=== PATIENT | female | born 2005 | race Caucasian/White ===

== ENCOUNTER 2025-01-28 23:40 | Emergency (ER) | payer BC, SELFPAY ==
--- OUTSIDE RECORDS SUMMARY | 2013-09-21 09:51 | XMS_ITS | Continuity of Care Document ---
Author Organization [facility] Address [address] [address] [place] [address] Phone Care Team Providers Care College Or University Business Manager Name Role Phone Jil DUMONT, Rachel Unavailable Unavailable Medications Medication Instructions Dosage Effective Dates (start - stop) Status Comments Children's Tylenol 160 mg/5 mL oral suspension take 5 ml (160MG) by oral route every 6 hours as needed 160 MG - Active Tums 300 mg (750 mg) chewable tablet take 2 - 3 Tablet by Oral route every day as needed 2-3 Tablet - Active Procedures Procedure Date Ugi Endo; W/bx 1/mx Colonoscopy Flex; W/bx 1/mx Offic Cons New/estab Mod Routine Serum Collection Bld Ct; Hg/pltlt Ct Auto/compl 14 Sed Rate, Erythrocyte; Auto Hepatic Function Panel C-reactive Prot Thyroid Stim Hormone Advance Directives Directive Yes / No Effective Date File Name No Information Encounters Encounter Description Practice Location Reason(s) For Visit Diagnoses Date Provider Providers Copied on Encounter [facility], [address] [address], [place], [place], [id number], [place] tel:[phone] Pediatric Clinic No Information Jil Ramos. [address] [facility], [place], [place], [id number] , [place]. tel:[phone] [facility], [address] [address], [place], [place], [id number], [place] tel:[phone] [facility] Procedures No Information Roula PATRICK Ulises. [address] [facility], [facility] [address], [place], [place], [id number] , [place]. tel:[phone] Referring Provider: Zoran Nelson MD, [address] [facility], [place], [address]. tel:[phone] Offic Cons New/estab Mod [facility], [address] [address], [place], [place], [address], [place] tel:[phone] [facility] Pain Jil Ramos. [address] [facility], [facility] [address], [place], [place], [id number] , [place]. tel:[phone] Referring Provider: Zoran Nelson MD, [address] [place], [address]. tel:[phone] Family History Family Member Type Diagnosis Age At Onset First degree family history Problem (finding) No Family history of No history of Colon Polyps First degree family history Problem (finding) No history of Ulcerative Colitis Maternal aunt Problem (finding) Liver Gallbladder Dise ase First degree family history Problem (finding) No histo ry of Crohn's Maternal grandmother Problem (finding) Thyroid disorde r First degree family history Problem (finding) No history of Colon Rectal Cancer Payers Payer name Insurance type Covered alliance party ID Authoriza tion(s) No Information Social History Type Description Quantity Date Captured Comments Sex Female Smoking Status No Information Chief Complaint And Reason For Visit No Information Reason For Referral Reason For Referral No Information History Of Present Illness Encounter Date Complaint History Of Prese nt Illness No Information Functional Status Date Functional Assessmen t No Information Instructions Date Instruction Additional Infor mation No Information Assessments Type Assessment Date No Information Patient Care Teams Name Effective Dates (start - stop) Status Members No Information
--- OUTSIDE RECORDS SUMMARY | 2013-09-21 09:51 | XMS_ITS | Continuity of Care Document ---
Author Organization [facility] Address [address] [address] [place] [address] Phone Care Team Providers Care Research Epidemiologist Name Role Phone Jil DUMONT, Rachel Unavailable [...] Encounter [facility], [address] [address], [place], [place], [address], [place] tel:[phone] Pediatric Clinic No Information Jil Ramos. [address] [facility], [address], [place], [place], [address] , [place]. tel:[phone] [facility], [address] [address], [place], [place], [address], [place] tel:[phone] [facility] Procedures No Information Roula PATRICK Ulises. [address] [facility], [facility] [address], [place], [place], [address] , [place]. tel:[phone] Referring Provider: Zoran Nelson MD, [address] [facility], [place], [address]. tel:[phone] Offic Cons New/estab Mod [facility], [address] [address], [place], [place], [address], [place] tel:[phone] [facility] Pain Jil Ramos. [address] [facility], [facility] [address], [place], [place], [id number] , [place]. tel:[phone] Referring Provider: Zoran Nelson MD, [address] [place], [address]. tel:[phone] Family History Family Member Type Diagnosis Age [...] Cancer Payers Payer name Insurance type Covered democrat ID Authoriza tion(s) No Information Social History [...]
[2025-01-28 23:42] VITALS: BP 127/84; PULSE 81; RESP 16; TEMP 36.3; O2SAT 99; BMI 21.1
--- OUTSIDE RECORDS SUMMARY | 2025-01-28 23:43 | XMS_ITS | Patient Health Record ---
Author Organization [facility] Address [address] [place] [address] Care Team Providers Care Skein Yarn Drier Name Role Phone CHEKO [place] Primary Care Provider Kelly LILI Josue Unavailable [phone] None, None Unavailable Unavailable Allergies Allergen (clinical drug ingredient) Drug/Non Drug Allergy documented on EMR Reaction Allergy Type Onset Date Status oseltamivir Tamiflu Unknown Drug Allergy Activ e Reason For Referral No Information Medications Medication SIG (Take, Route, Frequency, Duration) Notes Start Date End Date Status Sertraline HCl Activ e Augmentin 500-125 MG Tablet 1 tablet Orally every 12 hrs Active busPIRone HCl Active Adderall Active traZODone HCl Active Social History Tobacco Use: Social History Observation Description Date Details (start date - stop date) Never Smoker NA - NA Social History Tobacco Use: Social Info Question Answer Notes Tobacco Control (Standard) Tobacco use: Nonsmoker Vital Signs Height-cm 160.02 cm 03/23/2024 Weight-kg 52.62 kg 03/23/2024 BMI Percentile 39.45 % 03/23/2024 Height 63 in 03/23/2024 Weight 116 lbs 03/23/2024 BMI 20.55 kg/m2 03/23/2024 Procedures Procedure Date Ordered Date Performed Result Body Sit e Surgery 03/22/2024 03/22/202424 I&D PERITONSILLAR ABSCESS 03/23/2024 03/23/2024 N/A Encounters Encounter Location Date Provider Diagnosis [facility] [address] [place] [phone] 03/15/2024 LILI PATRICIA Peritonsillar absces s J36 [facility] [place] [address] [address] 03/23/2024 LILI PATRICIA Tonsillitis J03.90 [facility] [address] [facility] [address] [place], [place] [phone] 07/01/2024 LILI PATRICIA [facility] [place] [address] [place] [phone] 03/22/2024 LILI PATRICIA [facility] [place] [address] [place] [phone] 03/29/2024 LILI PATRICIA [facility] [address] [address] 04/18/2024 LILI PATRICIA [facility] [address] [address] 04/26/2024 LILI PATRICIA Assessments Encounter Date Diagnosis (ICD Code) Assessment Notes Treatment Notes Treatment Clinical Notes Section Notes 03/15/2024 Peritonsillar abscess (ICD-10 - J36) We reviewed the patient's clinical exam and management options moving forward. On exam, she has residual tonsil tissue and inflammation on the left with drops of pus from the left superior pole. The patient has a left peritonsillar abscess, although fortunately it is draining. I advised her to gargle with saltwater twice per day, manually press on the tonsils, and continue with her antibiotics. If the abscess seems to be bulging, she should return to clinic to have it manually drained in office. If this is a recurrent problem she may require revision tonsillectomy. 03/23/2024 Tonsillitis (ICD-10 - J03.90) I reviewed her clinical findings with her and her mother which demonstrated right-sided tonsil/ peritonsillar infection. This looked suspicious for a potential peritonsillar abscess, so I discussed needle aspiration with possible I&D. I reviewed the risks, alternatives, benefits with her and her mother and they wished to proceed. This was done without difficulty but I didn't encounter significant purulence.I suspect this either represents tonsillitis or a peritonsillar phlegmon, and because this is developed while on Augmentin I recommended switching to clindamycin. A short course of narcotics and 2 days of prednisone were prescribed and she will have Diflucan available if necessary. We discussed the risk of diarrhea on clindamycin and I encouraged probiotic use. If the right tonsillar infection progresses over the next 1 to 2 days I have asked him to either contact me or to go to the emergency department. She may benefit from CT imaging to better localize a potential abscess pocket. She is currently scheduled for a tonsillectomy in June. Plan Of Treatment No Information Insurance Providers Payer Name Payer Address Payer Phone Subscriber Number Group Number Insured Name Patient Relationship to Insured Coverage Start Date Coverage End Date [facility] [address] [address] [place] [address] [id number] Angel Alanis Self - patient is the insured 2023 Medical (General) History Medical History History ICD Code depression anxiety hashimostos Surgical History Surgery Date(Month/Year) ankle x5 tonsils MM 07/01/2024 Hospitalization History Reason Date(Month/Year) Same as Surgical history
--- OUTSIDE RECORDS SUMMARY | 2025-01-28 23:43 | XMS_ITS | Encounter Summary ---
Author Organization [place] Address [facility] [place] [address] Care Team Providers Care Director Of Operations Support Name Role Phone Subha Levine PA-C Primary Care Provider [phone] Subha Levine PA-C Unavailable [phone] [facility] Primary Care Pr ovider Gabriella Duffy MD Unavailable [phone] [facility] Unavail able Encounter Details Date Type Department Care Team (Late st Contact Info) Description 05/22/2022 MyC Medical Advice [facility] [id number] [place] [phone] Subha Levine PA-C [address] [facility] [address] [place], [place] [id number] Social History Tobacco Use Types Packs/Day Years Used Date Smoking Tobacco: Never Smokeless Tobacco: Never Alcohol Use Standard Drinks/Week Comments Never 0 (1 standard drink = 0.6 oz pur e alcohol) AUDIT-C Answer Date Recorded Q1: How often do you have a drink containing alc ohol? Never 11/15/2019 Average Number of Drinks Not on file 020 Frequency of Binge Drinking Not on file 11/2019 PHQ-2 Answer Date Recorded PHQ-2 Score 2 05/22/2022 Comments No Sex and Gender Information Value Date Recorded Sex Assigned at Not on file Legal Sex Female 8:56 AM TESTER PRINTED CIRCUIT BOARDS Gender Identity Not on file Sexual Orientation Not on file COVID-19 Exposure Response Date Recorded In the last 10 days, have yo u been in contact with someone who was confirmed or suspected to have Coronavirus/COVID-19? No / Unsure 05/22/2022 9:15 AM TESTER PRINTED CIRCUIT BOARDS documented as of this encounter Plan of Treatment Not on file documented as of this encounter Visit Diagnoses Not on filedocumented in this encounter Additional Health Concerns Infection Onset Date Last Indicated Resolved Time Rule Out COVID-19 06/03/2022 06/03/2022 06/03/2022 9:15 PM TESTER PRINTED CIRCUIT BOARDS Influenza 06/03/2022 06/03/2022 06/10/2022 11:4 1 PM TESTER PRINTED CIRCUIT BOARDS Assessment Noted Time PHQ-9 Depression Total Score: 16 022 9:21 AM TESTER PRINTED CIRCUIT BOARDS documented as of this encounter Care Teams Director Of Operations Support Relationship Specialty Start Date End Date Subha Levine PA-C PCP - General Physician Aircraft Time Clerk 01/31/20 08/15/[address] [address] PCP - General 08/16/23 Subha Levine PA-C Assigned PCP 04/07/21 06/03/24 [place] [address] [place] [address] Assigned PCP 06/04/24 10/01/24 [facility] [address] [place] [address] Assigned PCP 10/02/24 documented as of this encounter
--- OUTSIDE RECORDS SUMMARY | 2025-01-28 23:43 | XMS_ITS | Clinical Summary ---
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 Active busPIRone (BUSPAR) 15 MG tablet Take 15 mg by mouth 2 times daily. Active acetaminophen (TYLENOL) 500 MG tabletIndications :Peritonsillar abscess Take 2 tablets (1,000 mg) by mouth every 8 hours. 30 tablet 03/26/20 24 Active ibuprofen (ADVIL/MOTRIN) 400 MG tabletIndications :Peritonsillar abscess Take 1 tablet (400 mg) by mouth every 8 hours as needed for inflammatory pain. Can upset stomach so should be taken with food 30 tablet 03/26/20 24 Active guaiFENesin-codei ne (ROBITUSSIN AC) 100-10 MG/5ML solutionIndicatio ns:Acute cough Take 5-10 mLs by mouth every 6 hours as needed for cough. 180 mL 04/09/20 24 Active amoxicillin-clavu lanate (AUGMENTIN) 875-125 MG tablet Take 1 tablet by mouth 2 times daily. 20 tablet 04/15/20 24 Active magic mouthwash suspension (diphenhydrAMINE, lidocaine, aluminum-magnesiu m & simethicone) Swish and swallow 10 mLs in mouth every 6 hours as needed for sore throat. 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 09/25/2021 Attention deficit disorder (ADD) without hyperac tivity 07/17/2021 Dysmenorrhea 07/17/2021 Posterior tibial tendinitis, left 07/22/2017 Resolved Problems Problem Noted Date Diagnosed Date Resolved Date Chronic pain of left ankle 03/13/2021 0 10/14/2021 Aftercare following surgery of the musculoskeletal system 03/13/2021 10/14/2021 Immunizations Immunization Administration Dates Next Due COVID-19 MONOVALENT 12+ (Pfizer) 04/06/2021,090 10/2020 DTAP (<7y) 02/21/2011, 7,05/19/2006,03/23,01/19/2006 Flu, Unspecified 06/28/2008,05/27/2006 [id number] Novel Flu 06/09/2009,05/15/2009 HIB, Unspecified 2006, 6,03/23/2006,01/19 HPV9 (Gardasil) 06/18/2019,02/25/2018 HepA-Peds, Unspecified 02/21/2011 HepB, Unspecified 05/27/2006,03/23/2006,01/20/20 06 Hepatitis A (Vaqta/Havrix)(P eds 12m-18y) 12/25/2008 Influenza (IIV3) PF 04/06/2021, 6,04/27/2015,04/27,07/20/2013,07/04/2010,04/19/2007 Influenza (prior to 2023) 06/24/2017,04/29/2012, 09/23/2011 Influenza Vaccine >6 months,quad, PF 06/01/2020, 06/18/2019 MMR (MMRII) 02/21/2011,2006 Meningococcal ACWY (Menactra ) 11/15/2021,02/25/2018 Pneumococcal (PCV 7) 2006,05/19/20 06,03/23/2006,01/19 Poliovirus, inactivated (IPV) 03/13/2011 ,05/19/2006,03/23/2006,01/19 TDAP Vaccine (Adacel) 02/25/2018 Varicella (Varivax) 02/21/2011,2006 Family History Medical History Relation Comments Coronary Artery Disease Maternal Grandfather Diabetes Maternal Grandfather Hyperlipidemia Maternal Grandfather Coronary Artery Disease Maternal Grandmother Depression Mother Relation Status Comments Brother Alive Father Alive Maternal Grandfather Alive Maternal Grandmother Alive Mother Alive Paternal Grandfather Alive Paternal Grandmother Alive Social History Tobacco Use Types Packs/Day Years Used Date Smoking Tobacco: Never Smokeless Tobacco: Never Tobacco Cessation:Counseling Given: Not Answered Alcohol Use Standard Drinks/Week Comments Never 0 (1 standard drink = 0.6 oz pur e alcohol) AUDIT-C Answer Date Recorded Q1: How often do you have a drink containing alc ohol? Never 11/15/2019 Average Number of Drinks Not on file 020 Frequency of Binge Drinking Not on file 11/2019 PHQ-2 Answer Date Recorded PHQ-2 Score 2 05/22/2022 Adolescent Education Answer Date Record ed Getting School Help Needed Not on file 04/03 Food Insecurity Answer Date Recorded Within the past 12 months, d id you worry that your food would run out before you got money to buy more? No 03/24/2024 Within the past 12 months, d id the food you bought just not last and you didn t have money to get more? No 03/24/2024 Housing Stability Answer Date Recorded Do you have housing? (Jose bonds is defined as stable permanent housing and does not include staying outside in a car, in a tent, in an abandoned building, in an overnight mcfp, or couch-surfing.) Yes 03/24/2024 Are you worried about losing your housing? No 03/24/2024 Financial Resource Strain Answer Date R ecorded Within the past 12 months, h ave you or your family members you live with been unable to get utilities (heat, electricity) when it was really needed? No 03/24/2024 Transportation Needs Answer Date Record ed Within the past 12 months, h as lack of transportation kept you from medical appointments, getting your medicines, non-medical meetings or appointments, work, or from getting things that you need? No 03/24/2024 Interpersonal Safety Answer Date Record ed Do you feel physically and e motionally safe where you currently live? Yes 03/24/2024 Within the past 12 months, h ave you been hit, slapped, kicked or otherwise physically hurt by someone? No 03/24/2024 Within the past 12 months, h ave you been humiliated or emotionally abused in other ways by your partner or ex-partner? No 03/24/2024 Comments No Sex and Gender Information Value Date Recorded Sex Assigned at Not on file Legal Sex Female 8:56 AM MOBILE CRANE OPERATOR Gender Identity Not on file Sexual Orientation Not on file Last Filed Vital Signs Vital Sign Reading Time Taken Comments Blood Pressure 107/65 07/03/2024 5:45 AM MOBILE CRANE OPERATOR Pulse 74 07/03/2024 5:45 AM MOBILE CRANE OPERATOR Temperature 37.1 C (98.8 F) 07/03/2024 3:16 AM MOBILE CRANE OPERATOR Respiratory Rate 18 07/03/2024 3:16 AM MOBILE CRANE OPERATOR Oxygen Saturation 100% 07/03/2024 5:45 AM MOBILE CRANE OPERATOR Inhaled Oxygen Concentration - - Weight 55.7 kg (122 lb 12.7 oz) 07/03/2024 3:16 AM MOBILE CRANE OPERATOR Height 160 cm (5' 3) 03/24/2024 3:50 AM CDT Body Mass Index 21.75 03/24/2024 3:50 AM CDT Body Mass Index Percentile 53.78% 07/03/2024 3:1 6 AM MOBILE CRANE OPERATOR Growth Chart: CDC (Girls, 2- 20 Years) Plan of Treatment Health Maintenance Due Date Last Done Comments DEPRESSION ACTION PLAN 2005 HIV SCREENING 2020 MENINGITIS B VACCINE (1 of 2 - Standard) 2021 YEARLY PREVENTIVE VISIT 04/03/2022 04/03/2021, 02/25 PHQ-9 03/22/2023 09/19/2022, 03, 05/22/2022, Additional history exists ANNUAL REVIEW OF HM ORDERS 05/22/202305/22, 04/03/2021, 11/15/2019 HEPATITIS C SCREENING 11/26/2023 COVID-19 VACCINE ( season) 2024 04/06/2021, 03/16/2021 CHLAMYDIA SCREENING 11/29/2024 11/30/2023, INFLUENZA VACCINE (#1) 2025 , 04/06/2021, 06/01/2020, Additional history exists ADVANCE CARE PLANNING 11/15/2026 11/15/2021 DTAP/TDAP/TD VACCINE (7 - Td or Tdap) 02/26/2028 02/25/2018, 02/21/2011, 03/03/2007, Additional history exists ZOSTER VACCINE (1 of 2) 11/26/2055 HEPATITIS B VACCINE Completed 05/27/2006, 03/23/2006, 01/19/2006 HIB VACCINE Completed 2006, 01/2006, 03/23/2006, Additional history exists PNEUMOCOCCAL VACCINE: PEDIATRICS (0 to 5 YEARS) AND AT-RISK PATIENTS (6 to 49 YEARS) Aged Out 2006, 05/19/2006, 03/23/2006, Additional history exists No longer eligible based on patient's age to complete this topic VARICELLA VACCINE Completed 02/21/2011, 2006 IPV VACCINE Completed 03/13/2011, 01/2006, 03/23/2006, Additional history exists HPV VACCINE Completed 06/18/2019, 02/25/2018 MENINGITIS VACCINE Aged Out 11/15/2021, 02/25/2018 No longer eligible based on patient's age to complete this topic Insurance BCBS OUT OF STATE BCBS OUT OF STATE BCBS OUT OF STATE BCBS OUT OF STATE Advance Directives For more information, please contact: [phone] * Full Code (Latest Code Status on File) Date Activated Date Inactivated Comments 03/24/2024 12:28 AM 03/26/2024 12:51 PM All basic and advanced life-sustaining interventions are performed as appropriate Question Answer Comments Code status determined by: Discussion with patie nt/ legal decision maker Care Teams Lane Attendant Relationship Specialty Start Date End Date Clinic, Suzan [facility] [place] [address] [place] [address] PCP - General 08/16/23 [facility] [address] [place] [place] [id number] Assigned PCP 10/02/24
--- OUTSIDE RECORDS SUMMARY | 2025-01-28 23:43 | XMS_ITS | Encounter Summary ---
Author Organization [place] Address [facility] [place] [address] Care Team Providers Care Errand Runner Name Role Phone Subha Levine PA-C Primary Care Provider [phone] Subha Levine PA-C Unavailable [phone] [facility] Primary Care Pr ovider Gabriella Duffy MD Unavailable [phone] [facility] Unavail able Encounter Details Date Type Department Care Team (Late st Contact Info) Description 10/15/2021 MyC Medical Advice [facility] [address] [place] [phone] Subha Levine PA-C [address] [facility] [address] [place], [place] [address] Social History Tobacco Use Types Packs/Day Years [...] 11/2019 PHQ-2 Answer Date Recorded PHQ-2 Score Incomplete 10/15/2021 Comments No Sex and Gender Information Value Date Recorded Sex Assigned at Not on file Legal Sex Female 8:56 AM SCREW DOWN Gender Identity Not on file Sexual Orientation Not on file COVID-19 Exposure Response Date Recorded In the last month, have you been in contact with someone who was confirmed or suspected to have Coronavirus / COVID-19? No / Unsure 10/15/2021 11:09 AM CDT documented as of this encounter Plan of Treatment Not on file documented as of this encounter Visit Diagnoses Not on filedocumented in this encounter Additional Health Concerns Infection Onset Date Last Indicated Resolved Time Rule Out COVID-19 06/03/2022 06/03/2022 06/03/2022 9:15 PM SCREW DOWN Influenza 06/03/2022 06/03/2022 06/10/2022 11:4 1 PM SCREW DOWN Assessment Noted Time PHQ-9 Depression Total Score: 18 022 7:02 AM CDT documented as of this encounter Care Teams Errand Runner Relationship Specialty Start Date End Date Subha Levine PA-C PCP - General Physician Telemedicine Physician 01/31/20 08/15/[address] [address] PCP - General 08/16/23 Subha Levine PA-C Assigned PCP 04/07/21 06/03/24 [place] [address] [place] [address] Assigned PCP 06/04/24 10/01/24 [facility] [address] [place] [address] Assigned PCP 10/02/24 documented as of this encounter
--- OUTSIDE RECORDS SUMMARY | 2025-01-28 23:43 | XMS_ITS | Encounter Summary ---
Author Organization [facility] Address [address] [place] [address] Care Team Providers Care Drafter Civil Name Role Phone Priscilla Houston PA-C Primary Care Provider Encounter Details Date Type Department Care Team (Late st Contact Info) Description 10/01/2024 Notes/Orders [facility] [address] [place] [address] Rios Andrade MD [address] [place] [address] Social History Tobacco Use Types Packs/Day Years Used Date Smoking Tobacco: Never Smokeless Tobacco: Never Alcohol Use Standard Drinks/Week Comments Never 0 (1 standard drink = 0.6 oz pur e alcohol) Comments No Sex and Gender Information Value Date Recorded Sex Assigned at Not on file Legal Sex Female 3:15 PM CDT Gender Identity Not on file Sexual Orientation Not on file documented as of this encounter Plan of Treatment Not on file documented as of this encounter Visit Diagnoses Not on filedocumented in this encounter Care Teams Drafter Civil Relationship Specialty Start Date End Date Priscilla Houston PA-C [address] [address] [address] PCP - General Physician Parks And Recreation Worker 11/17/22 documented as of this encounter
--- OUTSIDE RECORDS SUMMARY | 2025-01-28 23:43 | XMS_ITS | Clinical Summary ---
Author Organization [employer] [facility] Address [address] [place] [address] Care Team Providers Care Yield Analyst Name Role Phone Savage Franklin MD Primary Care Provider + [phone] Allergies Active Allergy Reactions Criticality Noted Date Comments Hydrocodone Hallucinations 07/03/2024 Oseltamivir GI Upset,Nausea Only,*Unknown Low 02/25 vomiting Medications hydrOXYzine HCL 25 mg tablet Take 25 mg by mouth 3 times daily if needed. 08/20/19 24 Active levonorgestrel 21 mcg/24 hours (8 yrs) 52 mg intrauterine device (IUD) Inject 1 Each intrauterine continuous. 01/03/20 23 031 Active ondansetron 4 mg disintegrating tablet take 1 tablet by mouth every 8 hours as needed for nausea Active dextroamphetamine- amphetamine (AdderalL) 10 mg tabletIndications: Attention deficit disorder (ADD) without hyperactivity Take 1 Tablet (10 mg) by mouth two times daily. 60 Tablet 12/21/19 25 Active DULoxetine 30 mg Delayed-release capsuleIndications :Neuropathic pain, leg, left,Moderate episode of recurrent major depressive disorder (HC),Anxiety Take 1 Capsule (30 mg) by mouth two times daily. 60 Capsule 2 5 4:00 PM CDT 11/23/19 25 Active gabapentin 300 mg capsuleIndications :Neuropathic pain, leg, left Take 1 Capsule (300 mg) by mouth at bedtime. 90 Capsule 1 5 4:00 PM CDT 11/23/19 25 Active QUEtiapine 25 mg tabletIndications: Psychophysiologica l insomnia Take 1 Tablet (25 mg) by mouth at bedtime. 90 Tablet 1 5 4:00 PM CDT 11/23/19 25 Active nitrofurantoin macrocrystals/mono hydrate (MACROBID) 100 mg capsuleIndications :UTI (urinary tract infection), uncomplicated Take 1 Capsule (100 mg) by mouth two times daily for 5 days. 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 11/20/2022 but tsh still normal, check every 6-12 months or if symptomatic. History of Henoch-Schonlein purpura 11/17/2022 Overview (10/21/2024): At age 6, hospitalized for 12 days Anxiety 10/15/2021 Moderate episode of recurrent major depressive d isorder 10/15/2021 Overview (10/21/2024): Lexapro made her feel flat. Attention deficit disorder (ADD) without hyperac tivity 07/17/2021 Overview (10/21/2024): Diagnosis: ADHD Medication: Adderall IR 10 mg bid Controlled Substance Agreement reviewed and signed: no Date agreement signed: 11/18/2022 Refill plan: q6m Clinician: Priscilla Houston PA-C Encounters Date Type Department Care Team Description 01/26/2025 3:50 PM CDT Office Visit [facility] [place] [address] [place] [address] Taylor Yeung, OPTIONS TRADER Hematuria 01/26/2025 Travel 12/26/2024 11:15 AM CDT Ancillary Procedure [facility] [address] [place] [address] 12/26/2024 9:00 AM CDT Office Visit [facility] [address] [place] [address] Joy Connelly PA Financial Sales Associate Exam (IUD check/hx of ovarian cysts/pain started around easter /has pain during sex and when she walks/moves around /had bright red blood about a month ago/ hasn't had a period since she got IUD ) 12/26/2024 Travel 11/22/2024 10:40 AM CDT [place] [facility] [place] [address] [place] [address] Savage Franklin MD Medication Management 11/22/2024 Travel from Last 3 Months Immunizations Immunization Administration Dates Next Due DTaP 02/21/2011, 7,05/19/2006,03/23,01/19/2006 HPV 9 (Gardasil 9) 06/18/2019,02/25/2018 Hepatitis A (Peds) 12/25/2008 Hepatitis A (Peds),Unspecified 02/21/2011 Hepatitis B, Unspecified 05/27/2006,03/23/2006,0 01/19/2006 Hib Conjugate, Unspecified 2006,,03/23/2006,01/19 INFLUENZA, IIV3 PF (AGE >= 6 MO) 017,06/24/2017,04/29/2012,04/29,09/23/2011,09/23/2011 Inactivated Polio Vaccine 03/13/2011,01/2006,03/23/2006,01/19 Influenza A (H1N1), Inactiva juan ramon (Age >=3 Years) 06/09/2009,05/15/2009 Influenza Virus, Unspecified 06/28/2008,05/27/20 06 Influenza, IIV3 (Age >=3 years) 04/06/20 21,06/18/2016,04/27/2015,04/27,07/20/2013,07/04/2010,04/19/2007 Influenza, IIV4 07/28/2022,06/01/2020,06/18/2019 MMR 02/21/2011,2006 Meningococcal Vaccine (Menactra) 11/15/2021,02/10 Pneumococcal conj 7-Valent (Prevnar 7) 0 2006,05/19/2006,03/23/2006,01/19 Tdap 02/25/2018 Varicella Vaccine 02/21/2011,2006 Social History Tobacco Use Types Packs/Day Years Used Date Smoking Tobacco: Never Passive Smoke Exposure: Never Smokeless Tobacco: Never Tobacco Cessation:Counseling Given: Not Answered Alcohol Use Standard Drinks/Week Comments No 0 (1 standard drink = 0.6 oz pur e alcohol) PHQ-2 Answer Date Recorded PHQ-2 TOTAL SCORE 4 11/22/2024 Social Connections Answer Date Recorded Do you often feel lonely or isolated from those around you? 0 10/21/2024 Financial Resource Strain Answer Date R ecorded Difficulty of Paying Living Expenses 3 10/21/2024 Difficulty of Paying Living Expenses Not on file 10/21/2024 Food Insecurity Answer Date Recorded Do you worry your food will run out before you are able to buy more? 1 10/21/2024 Transportation Needs Answer Date Record ed Does lack of transportation keep you from medica l appointments? 1 10/21/2024 Does lack of transportation keep you from work, meetings or getting things that you need? 1 10/21/2024 Housing Stability Answer Date Recorded What is your housing situation today? 1 10/21/2024 Utilities Answer Date Recorded Do you have trouble paying f or utilities (for example, heat, electricity, water, phone)? 1 10/21/2024 Comments No Sex and Gender Information Value Date Recorded Sex Assigned at Not on file Legal Sex Female 8:15 AM CDT Gender Identity Not on file Sexual Orientation Not on file Obstetrics History Last Filed Vital Signs Vital Sign Reading Time Taken Comments Blood Pressure 120/67 01/26/2025 3:58 PM CDT Pulse 92 01/26/2025 3:58 PM CDT Temperature 36.6 C (97.8 F) 01/26/2025 3:58 PM CDT Respiratory Rate 14 01/26/2025 3:58 PM CDT Oxygen Saturation 98% 01/26/2025 3:58 PM CDT Inhaled Oxygen Concentration - - Weight 54.2 kg (119 lb 6.4 oz) 01/26/2025 3:58 P M CDT Height 160 cm (5' 3) 01/26/2025 3:58 PM CDT Body Mass Index 21.15 01/26/2025 3:58 PM CDT Plan of Treatment Upcoming Encounters Date Type Department Care Team (Late st Contact Info) Description 01/30/2025 9:20 AM CDT [place] [facility] [place] [address] [place] [address] [place] [address] [place], [place] [id number] 02/01/2025 8:00 AM CDT Office [place] [facility] [address] [place], [place] [phone] [place] [address] [place], [place] [phone] Health Maintenance Due Date Last Done Comments Well Child Check for age 3-20 10/26/2008 HIV for age 15-65 2020 Hepatitis C screening for age 18-79 11/26/2023 COVID-19 vaccine series ( season) 2024 04/06/2021, 03/16/2021 Influenza Vaccine (#1) 2025 , 04/06/2021, 06/01/2020, Additional history exists Depression screening for age 12+ 11/22/2025 11/22/2024 Chlamydia for age 16-24 12/26/2025 12/26/2024, 10/21 BMI (ht and wt on same day) for age 18+ 01/26/2026 01/26/2025, 11/22/2024, 10/21/2024 Tetanus booster 02/26/2028 02/25/2018 Hepatitis B series for 19+ Completed 05/27, 03/23/2006, 01/19/2006 Pneumococcal series for age 6-49 Aged Out 2006, 05/19/2006, 03/23/2006, Additional history exists No longer eligible based on patient's age to complete this topic HPV series for age 9-26 Completed 06/18/2019, 02/25 Meningococcal series for age 11-21 Aged Out 11/15/2021, 02/25/2018 No longer eligibl e based on patient's age to complete this topic Procedures Procedure Name Priority Date/Time Associated Diagnosis Comments URINE CULTURE Routine 01/26/2025 4:08 PM CDT Hematuria, unspecified type UA W/ SEDIMENT EXAM REFLEXED PER CRITERIA STAT 01/26/2025 4:08 PM CDT Hematuria, unspecified type US PELVIS COMPLETE TA AND TV STAT 12/26/2024 11:42 AM CDT Intrauterine contraceptive device threads lost, initial encounter Dyspareunia in female GC CHLAMYDIA TRACH PROBE Routine 12/26/2024 9:11 AM CDT Dyspareunia in female from Last 3 Months Results * URINE CULTURE [60821.2] - routine (01/26/2025 4:08 PM CDT) CULTURE <10,000 CFU/mL multiple organisms 01/28/2025 3:11 PM CDT [facility] Urine URINE SPECIMEN / Unknown Non-Blood / Unknown 01/26/2025 4:08 PM CDT 01/26/2025 4:08 PM CDT us Nuvia Peguero NP MICROBIOLOGY Final Res ult [facility] [address] [place] [address], * (ABNORMAL) UA W/ SEDIMENT EXAM REFLEXED PER CRITERIA [79066.2] (01/26/2025 4:08 PM CDT) COLOR YELLOW YELLOW 01/26/2025 4:20 PM CDT [facility] SPECIFIC GRAVITY 1.010 1.001 - 1.035 01/26/2025 4:20 PM CDT [facility] PH 7.0 5.0 - 8.0 01/26/2025 4:20 PM CDT [facility] PROTEIN NEGATIVE NEGATIVE 01/26/2025 4:20 PM CDT [facility] GLUCOSE NEGATIVE NEGATIVE 01/26/2025 4:20 PM CDT [facility] KETONES NEGATIVE NEGATIVE 01/26/2025 4:20 PM CDT [facility] BILIRUBIN NEGATIVE NEGATIVE 01/26/2025 4:20 PM CDT [facility] OCCULT BLOOD 2+(A) NEGATIVE 01/26/2025 4:20 PM CDT [facility] NITRITE NEGATIVE NEGATIVE 01/26/2025 4:20 PM CDT [facility] LEUKOCYTE ESTERASE 1+(A) NEGATIVE 01/26/2025 4:20 PM CDT [facility] APPEARANCE CLEAR CLEAR 01/26/2025 4:20 PM CDT [facility] WBC UA 0-5 < OR = 5 /HPF 01/26/2025 4:20 PM CDT [facility] RBC UA 3-10(A) < OR = 2 /HPF 01/26/2025 4:20 PM CDT [facility] SQUAMOUS EPITHELIAL CELLS UA 6-10(A) < OR = 5 /HPF 01/26/2025 4:20 PM CDT [facility] BACTERIA UA FEW(A) NONE SEEN /HPF 01/26/2025 4:20 PM CDT [facility] NOTE UA SEE NOTE 01/26/2025 4:20 PM CDT [facility] Comment: This urine was analyzed for the presence of WBC, RBC, bacteria, casts, and other formed elements. Only those elements seen were reported. Urine URINE SPECIMEN / Unknown Non-Blood / Unknown 01/26/2025 4:08 PM CDT 01/26/2025 4:08 PM CDT us Nuvia Peguero OPTIONS TRADER URINE Final Res ult [email or web address] [facility] [address] [place] [address], [facility] [address] [place] [address], [place] * US PELVIS COMPLETE TA AND TV (12/26/2024 11:42 AM CDT) Anatomical Region Laterality Modality Pelvis Ultrasound 12/26/2024 12:0 4 PM CDT Impressions 12/26/2024 12:04 PM CDT Normal pelvic ultrasound. The IUD is well-positioned within the endometrial cavity. Dictated by Bindu Castro MD @ 12/26/2024 12:04:20 PM (Electronically Signed) Narrative 12/26/2024 12:04 PM CDT For Patients: As a result of the Century Cures Act, medical imaging exams and procedure reports are released immediately into your electronic medical record. You may view this report before your referring provider. If you have questions, please contact your health care provider. INDICATION: IUD threads lost, dyspareunia COMPARISON: None. TECHNIQUE: Transabdominal: Lebron-scale and color Doppler ultrasound of the uterus and ovaries from a transabdominal approach. Transvaginal: Lebron-scale and color Doppler ultrasound of the uterus and ovaries from a transvaginal approach. Transvaginal ultrasound of the pelvis was performed to better visualize the genitourinary organs, such as the ovaries and/or endometrium. Color-flow and spectral Doppler imaging of both ovaries is performed. Imaging of the endometrium was obtained additional 3D to evaluate the IUD position. FINDINGS: Reported last menstrual period: Not provided. The uterus is anteverted and measures 5.3 x 4.8 x 2.8 cm. No uterine masses. The endometrial stripe measures is not discretely visible. The IUD appears to be well-positioned in the endometrial cavity. No endometrial masses. The cervix is normal. The right ovary measures 2.6 x 2.1 x 1.3 cm. Physiologic appearance without a dominant cystic lesion or solid ovarian / adnexal mass. There is normal arterial and venous color Doppler flow and normal arterial and venous waveforms on duplex Doppler. The left ovary measures 3.6 x 1.8 x 1.7 cm. Physiologic appearance without a dominant cystic lesion or solid ovarian / adnexal mass. There is normal arterial and venous color Doppler flow and normal arterial and venous waveforms on duplex Doppler. Small free fluid. Procedure Note Bindu Castro MD - 12/26/2024 For Patients: As a result of the Cures Act, medical imagingexams and procedure reports are released immediately into your electronicmedical record. You may view this report before your referring provider.If you have questions, please contact your health care provider. INDICATION: IUD threads lost, dyspareunia COMPARISON: None. TECHNIQUE: Transabdominal: Lebron-scale and color Doppler ultrasound of the uterus andovaries from a transabdominal approach. Transvaginal: Lebron-scale and color Doppler ultrasound of the uterus andovaries from a transvaginal approach. Transvaginal ultrasound of thepelvis was performed to better visualize the genitourinary organs, such asthe ovaries and/or endometrium. Color-flow and spectral Doppler imaging ofboth ovaries is performed. Imaging of the endometrium was obtainedadditional 3D to evaluate the IUD position. FINDINGS: Reported last menstrual period: Not provided. The uterus is anteverted and measures 5.3 x 4.8 x 2.8 cm. No uterinemasses. The endometrial stripe measures is not discretely visible. The IUD appearsto be well-positioned in the endometrial cavity. No endometrial masses. The cervix is normal. The right ovary measures 2.6 x 2.1 x 1.3 cm. Physiologic appearancewithout a dominant cystic lesion or solid ovarian / adnexal mass. There isnormal arterial and venous color Doppler flow and normal arterial andvenous waveforms on duplex Doppler. The left ovary measures 3.6 x 1.8 x 1.7 cm. Physiologic appearance withouta dominant cystic lesion or solid ovarian / adnexal mass. There is normalarterial and venous color Doppler flow and normal arterial and venouswaveforms on duplex Doppler. Small free fluid. IMPRESSION: Normal pelvic ultrasound. The IUD is well-positioned within theendometrial cavity. Dictated by Bindu Castro MD @ 12/26/2024 12:04:20 PM (Electronically Signed) us Joy HINTON US Final R esult * GC CHLAMYDIA TRACH PROBE (12/26/2024 9:11 AM CDT) CHLAMYDIA PROBE Negative 10:01 PM CDT [facility] N GONORRHOEAE PROBE Negative 12/26/2024 10:01 PM CDT [facility] Other VAGINAL SWAB / Unknown Non-Blood / Unknown 12/26/2024 9:11 AM CDT 12/26/2024 1:35 PM CDT us Joy HINTON MICROBIOLOGY Final R esult [facility] [address] [place] [address], from Last 3 Months Insurance [employer] PL[employer] Care Teams Yield Analyst Relationship Specialty [place] [address] [place] [address] PCP - General Family Practice 10/21/24
--- OUTSIDE RECORDS SUMMARY | 2025-01-28 23:43 | XMS_ITS | Encounter Summary ---
Author Organization [facility] Address [facility] access hospital[facility] [place] [address] Care Team Providers Care Coverstitch Elastic Attacher Name Role Phone Subha Levine PA-C Primary Care Provider + [phone] Subha Levine PA-C Unavailable [phone] [facility] Felecia Plummer Primary Care Pr ovider Gabriella Duffy MD Unavailable [phone] Clinic - [facility] Unavail able Encounter Details Date Type Department Care Team (Late st Contact Info) Description 10/31/2021 MyC Medical Advice [facility] [place] [id number] [place] [phone] Charity Guajardo, [facility] [id number] [place] [address] Social History Tobacco Use Types Packs/Day Years [...] on file Legal Sex Female 8:56 AM INFRASTRUCTURE SOLUTIONS ARCHITECT Gender Identity Not on file Sexual Orientation [...] Out COVID-19 06/03/2022 06/03/2022 06/03/2022 9:15 PM INFRASTRUCTURE SOLUTIONS ARCHITECT Influenza 06/03/2022 06/03/2022 06/10/2022 11:4 1 PM INFRASTRUCTURE SOLUTIONS ARCHITECT Assessment Noted Time PHQ-9 Depression Total Score: 18 022 7:02 AM CDT documented as of this encounter Care Teams Coverstitch Elastic Attacher Relationship Specialty Start Date End Date Subha Levine PA-C PCP - General Physician Sawmill Manager 01/31/20 08/15/[address] [address] PCP - General 08/16/23 Subha Levine PA-C Assigned PCP 04/07/21 06/03/24 [place] [address] [place] [address] Assigned PCP 06/04/24 10/01/24 [facility] [address] [place] [address] Assigned PCP 10/02/24 documented as of this encounter
--- OUTSIDE RECORDS SUMMARY | 2025-01-28 23:43 | XMS_ITS | Clinical Summary ---
Author Organization [employer] Address [address] [place] [address] Care Team Providers Care Refinish Technician Name Role Phone Priscilla Houston PA-C Primary Care Provider Source Comments You are receiving this document as you are listed as the primary care provider,follow-up provider, or the patient has been referred to you for consultation.This is in compliance with the Medicare and[facility] EHR Incentive Program,which states Providers who transition their patient to another setting of careor provider of care or refers their patient to another provider of care shouldprovide summary care record for each transition of care or referral. [place] Allergies Active Allergy Reactions Criticality Noted Date Comments Oseltamivir Gastrointestinal Low 02/25/2018 vomiting Medications traZODone (DESYREL) 50 MG tablet Take 1 Tablet (50 mg) by mouth daily at bedtime. 09/20/19 23 Active triamcinolone acetonide (KENALOG) 0.1 % creamIndications:R brendan and nonspecific skin eruption,Pruritus Apply topically two times daily as needed for Other (to affected area). 45 g 1 11/19/19 23 Active levonorgestrel (MIRENA) 20 MCG/DAY IUDIndications:Enc ounter for insertion of intrauterine contraceptive device 1 Each by Intrauterine route continuous. 01/03/20 23 031 Active ondansetron (ZOFRAN-ODT) 4 MG disintegrating tablet Take 1 Tablet (4 mg) by mouth every 8 hours as needed for Nausea. 10 Tablet 08/06/19 24 Active hydrOXYzine HCl (ATARAX) 25 MG tablet Take 1 Tablet (25 mg) by mouth three times a day as needed. 20 Tablet 08/20/19 24 Active gabapentin (NEURONTIN) 100 MG capsule Take 1 Capsule (100 mg) by mouth three times a day. 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 11/20/2022 but tsh still normal, check every 6-12 months or if symptomatic. 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 Discussed possibly rash and myalgias are due to post viral syndrome from uri she had two weeks ago. Will give triamcinolone for itching, labs today. Will try to get UA if pt able to leave sample. Normal exam. Moderate episode of recurrent major depressive d isorder 10/15/2021 Overview (11/18/2022): Lexapro made her feel flat. Assessment & Plan (11/18/2022 9:38 AM CDT): Lexapro caused pt to feel flat, will change to prozac (zoloft not covered by pt insurance). If switching causes any withdrawal symptoms, pt will let me know and will do cross taper. Will follow up in 1 month to check on medication change and dose. Phq9 updated today. 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 Immunizations Immunization Administration Dates Next Due 9vHPV (Gardasil 9) 06/18/2019,02/25/2018 DTaP 02/21/2011, 7,05/19/2006,2005,01/19/2006 Flu Vac (3+ yrs) 04/06/2021, 6,04/27/2015,2013,07/20/2013,07/04/2010,04/19/2007 Flu Vac Preserv Free (3+yrs) 06/24/2017,04/29/20 12,09/23/2011 HepA Ped/Adol (1-18 yrs) 12/25/2008 HepA, Pediatric (DO NOT USE; for [facility] only) 02/21/2011 HepB, Unspecified Formulation 05/27/2006, 006,01/19/2006 Hib, Unspecified Formulation 2006, 05/19/2006,03/23/2006,2005 IPV (Polio) 03/13/2011, 6,03/23/2006,2005 Influenza [id number] 06/09/2009,05/15/2009 Influenza IIV4 (Quadrivalent ) 0.5mL (62443) 07/28/2022,06/01/2020,06/18/2019 Influenza, Unspecified Formulation 06/28/2008, MCV4 (Menactra) 11/15/2021,02/25/2018 MMR 02/21/2011,2006 Pfizer Monovalent 12+ Purple Top 04/06/2021,09/0 10/2020 Pneumococcal 7, PED 2006, 6,03/23/2006,2005 Tdap 02/25/2018 Varicella 02/21/2011,2006 Family History Medical History Relation Name Comments ADHD Mother Jeimy Anxiety Mother Jeimy Depression Mother Jeimy Diabetes Maternal Grandfather Hyperlipidemia Maternal Grandfather Heart Disease Maternal Grandmother Relation Name Status Comments Father Alive Mother Jeimy Alive Brother Doug Alive Maternal Grandfather Maternal Grandmother Social History Tobacco Use Types Packs/Day Years [...] Sign Reading Time Taken Comments Blood Pressure 103/61 12/24/2023 10:00 AM CDT Pulse 99 12/24/2023 10:00 AM CDT Temperature 36.3 C (97.3 F) 08/06/2023 5:00 PM PARK RECREATION MANAGER Respiratory Rate 14 08/06/2023 5:30 PM PARK RECREATION MANAGER Oxygen Saturation 99% 08/06/2023 5:30 PM PARK RECREATION MANAGER Inhaled Oxygen Concentration - - Weight 49.2 kg (108 lb 8 oz) 12/24/2023 10:00 AM CDT Height 163.5 cm (5' 4.37) 12/24/2023 10:00 AM C DT Body Mass Index 18.41 12/24/2023 10:00 AM CDT Body Mass Index Percentile 12.08% 12/24/2023 10: 00 AM CDT Growth Chart: CDC (Girls, 2- 20 Years) Plan of Treatment Health Maintenance Due Date Last Done Comments Hep C Screening (Preventive Services) 2005 MenB Immunization Discussion 2005 HIV Screening (Preventive Services) 2021 Adult Preventive Visit 11/26/2023 COVID-19 Vaccine ( season) 2024 04/06/2021, 03/16/2021 Chlamydia 11/29/2024 11/30/2023, 01/02/2023 Influenza Vaccine (#1) 2025 , 04/06/2021, 06/01/2020, Additional history exists DTaP/Tdap/Td Vaccine (7 - Tdap) 02/26/2028 02/25/2018, 02/21/2011, 03/03/2007, Additional history exists Zoster/Shingles Vaccine (1 of 2) 11/26/2055 HepB Vaccine Completed 05/27/2006, 03/13, 01/19/2006 Hib Vaccine Completed 2006, 01/2006, 03/23/2006, Additional history exists Pneumococcal Vaccine Aged Out 2006, 05/19/2006, 03/23/2006, Additional history exists No longer eligible based on patient's age to complete this topic HepA Vaccine Completed 02/21/2011, 12/25/2008 Varicella Vaccine Completed 02/21/2011, 2006 IPV (Polio) Vaccine Completed 03/13/2011, 05/19/2006, 03/23/2006, Additional history exists HPV Vaccine Completed 06/18/2019, 02/25/2018 MCV4 Vaccine Aged Out 11/15/2021, 02/25/2018 No lo nger eligible based on patient's age to complete this topic HGB Completed 11/18/2022 Medical Devices Implanted Type Area English Composition Teacher Device Identifier Shelf Expiration Date Model / Serial / Lot Biocomposite Tenodesis Screw With Disposable Cotton Stripper Pack [id number] Implanted:Qty: 1 on 08/06/2023 by Rios Andrade MD at [facility] DEVICE Left: FOOT [employer] 03/12/2024 [id number] / / [id number] Procedures Procedure Name Priority Date/Time Associated Diagnosis Comments CHLAMYDIA & GC (14 YEARS & OLDER) Routine 11/30/2023 3:07 PM CDT Routine screening for STI (sexually transmitted infection) COMPLETE BLOOD COUNT-W/DIFF Routine 11/18/2022 9:41 AM CDT Myalgia from Last 3 Months or Most Recently Relevant to Health Maintenance Results * Chlamydia & GC (14 Years and Older): Vagina (11/30/2023 3:07 PM CDT) Chlamydia Trachomatis STD Not Detected Not Detected 11/30/2023 10:58 PM CDT [facility] N. gonorrhoeae STD Not Detected Not Detected 11/30/2023 10:58 PM CDT [facility] Swab STD SPECIMEN FROM VAGINA / Unknown Non-blood Collection / Unknown 11/30/2023 3:07 PM CDT 11/30/2023 4:43 PM CDT Narrative [facility] - 11/30/2023 10:58 PM CDT Test performed by Point Of Care Specialist Mediated Amplification (TMA). us Taty nOeal MD LAB_1 Final Result [facility] [address] * Complete Blood Count-W/Diff (11/18/2022 9:41 AM CDT) WBC 5.6 3.5 - 10.5 x10(9)/L 11/18/2022 9:43 AM [facility] RBC 4.93 3.90 - 5.03 x10(12)/L 11/18/2022 9:43 AM [facility] Hemoglobin 13.7 12.0 - 15.5 g/dL 11/18/2022 9:43 AM [facility] HCT 42.0 34.9 - 44.5 % 11/18/2022 9:43 AM [facility] MCV 85.2 80.0 - 100.0 fL 11/18/2022 9:43 AM [facility] MCH 27.8 27.6 - 33.3 pg 11/18/2022 9:43 AM [facility] MCHC 32.6 31.5 - 35.2 g/dL 11/18/2022 9:43 AM [facility] RDW 12.8 11.9 - 15.5 % 11/18/2022 9:43 AM [facility] Platelets 330 150 - 450 x10(9)/L 11/18/2022 9:43 AM [facility] Automated NRBC 0 <=0 /100 WBC 11/18/2022 9:43 AM [facility] Neutrophil Absolute 2.4 1.7 - 7.0 10(9)/L 11/18/2022 9:43 AM [facility] Lymphocyte Absolute 2.5 1.0 - 4.8 10(9)/L 11/18/2022 9:43 AM CDT [facility] Monocyte Absolute 0.5 0.2 - 0.9 10(9)/L 11/18/2022 9:43 AM CDT [facility] Eosinophil Absolute 0.2 0.0 - 0.5 10(9)/L 11/18/2022 9:43 AM CDT [facility] Basophil Absolute 0.0 0.0 - 0.3 10(9)/L 11/18/2022 9:43 AM CDT [facility] Immature Granulocyte % 0.4 0.0 - 0.5 % 11/18/2022 9:43 AM T [facility] Blood Venipuncture / Unknown 11/18/2022 9:41 AM CDT 11/18/2022 9:41 AM CDT us Priscilla Houston PA-C LAB_1 Final R esult [facility] [address] [place] [address], [facility] [phone] from Last 3 Months or Most Recently Relevant to Health Maintenance Insurance [facility] HP COMM HP FAMILY DENTAL [facility] Advance Directives * Full Code (Latest Code Status on File) Date Activated Date Inactivated Comments 08/06/2023 1:46 PM 08/06/2023 7:53 PM Care Teams Refinish Technician Relationship Specialty Start Date End Date Priscilla Houston PA-C [address] [address] PCP - General Physician Bulk Filler 11/17/22
[2025-01-29 00:13] LABS: Appearance Urine Clear (Clear)
--- OUTSIDE RECORDS SUMMARY | 2025-01-29 00:19 | XMS_ITS | Clinical Summary ---
Author Organization [place] Address [address] [place] [address] Care Team Providers Care Clinical Team Lead Name Role Phone [facility]an [facility] [place] [facility] Pr ovider [facility] Unavail able Allergies Active Allergy Reactions Criticality [...] DTAP (<7y) 02/21/2011, 7,05/19/2006,03/23,01/19/2006 Flu, Unspecified 06/28/2008,05/27/2006 [id number] Novel Flu 06/09/2009,05/15/2009 HIB, Unspecified 2006, 6,03/23/2006,01/19 [...] in an abandoned building, in an overnight long-term, or couch-surfing.) Yes 03/24/2024 Are you worried [...] on file Legal Sex Female 8:56 AM ELEVATOR WORKER Gender Identity Not on file Sexual Orientation Not on file Last Filed Vital Signs Vital Sign Reading Time Taken Comments Blood Pressure 107/65 07/03/2024 5:45 AM ELEVATOR WORKER Pulse 74 07/03/2024 5:45 AM ELEVATOR WORKER Temperature 37.1 C (98.8 F) 07/03/2024 3:16 AM ELEVATOR WORKER Respiratory Rate 18 07/03/2024 3:16 AM ELEVATOR WORKER Oxygen Saturation 100% 07/03/2024 5:45 AM ELEVATOR WORKER Inhaled Oxygen Concentration - - Weight 55.7 kg (122 lb 12.7 oz) 07/03/2024 3:16 AM ELEVATOR WORKER Height 160 cm (5' 3) 03/24/2024 3:50 AM CDT Body Mass Index 21.75 03/24/2024 3:50 AM CDT Body Mass Index Percentile 53.78% 07/03/2024 3:1 6 AM ELEVATOR WORKER Growth Chart: CDC (Girls, 2- 20 Years) [...] Advance Directives For more information, please contact: [phone] * Full Code (Latest Code Status on File) Date Activated Date Inactivated Comments 03/24/2024 12:28 AM 03/26/2024 12:51 PM All basic and advanced life-sustaining interventions are performed as appropriate Question Answer Comments Code status determined by: Discussion with patie nt/ legal decision maker Care Teams Clinical Team Lead Relationship Specialty Start Date End Date Clinic, [facility] [place] [address] [place] [address] PCP - General 08/16/23 Clinic - [facility] [address] [place] [place] [place] [id number] Assigned PCP 10/02/24
--- OUTSIDE RECORDS SUMMARY | 2025-01-29 00:19 | XMS_ITS | Encounter Summary ---
Author Organization [place] Address [facility] [place] [address] Care Team Providers Care Certified Master Safe Technician Name Role Phone Subha Levine PA-C Primary Care Provider + [phone] Subha Levine PA-C Unavailable [phone] [facility] Felecia Abbot Primary Care Pr ovider Gabriella Duffy MD Unavailable [phone] Clinic - [facility] Unavail able Encounter Details Date Type Department Care Team (Late st Contact Info) Description 10/31/2021 MyC Medical Advice [facility] [id number] [place] [phone] Charity Guajardo, [facility] [address] [place] [address] Social History Tobacco Use Types Packs/Day [...] on file Legal Sex Female 8:56 AM MANAGER LEGAL Gender Identity Not on file Sexual Orientation [...] Out COVID-19 06/03/2022 06/03/2022 06/03/2022 9:15 PM MANAGER LEGAL Influenza 06/03/2022 06/03/2022 06/10/2022 11:4 1 PM MANAGER LEGAL Assessment Noted Time PHQ-9 Depression Total Score: 18 022 7:02 AM CDT documented as of this encounter Care Teams Certified Master Safe Technician Relationship Specialty Start Date End Date Subha Levine PA-C PCP - General Physician City Supervisor 01/31/20 08/15/[address] [address] PCP - General 08/16/23 Subha Levine PA-C Assigned PCP 04/07/21 06/03/24 [place] [address] [place] [address] Assigned PCP 06/04/24 10/01/24 [facility] [address] [place] [address] Assigned PCP 10/02/24 documented as of this encounter
--- OUTSIDE RECORDS SUMMARY | 2025-01-29 00:19 | XMS_ITS | Patient Health Record ---
Author Organization [facility] Address [address] [place] [address] Care Team Providers Care Public Safety Police Name Role Phone CHEKO Houston Primary Care Provider Kelly LILI Josue Unavailable [phone] None, None Unavailable Unavailable Allergies Allergen (clinical [...] Diagnosis [facility] [address] [place] [phone] 03/15/2024 LILI PATRICIA Peritonsillar absces s J36 [facility] [place] [id number] [phone] 03/23/2024 LILI PATRICIA Tonsillitis J03.90 [facility] [address] [facility] [address] [place], [place] [phone] 07/01/2024 LILI PATRICIA [facility] [address] [place] [phone] 03/22/2024 LILI PATRICIA [facility] [address] [place] [phone] 03/29/2024 LILI PATRICIA [facility] [address] [address] 04/18/2024 LILI PATRICIA [facility] [address] [address] 04/26/2024 LILI PATRICIA Assessments Encounter Date Diagnosis [...] Insured Coverage Start Date Coverage End Date [facility] [address] [address] [place] [address] [id number] Angel Alanis Self - patient is the insured 2023 Medical (General) History Medical History History ICD Code depression anxiety hashimostos Surgical History Surgery Date(Month/Year) ankle x5 tonsils MM 07/01/2024 Hospitalization History Reason Date(Month/Year) Same as Surgical history
--- OUTSIDE RECORDS SUMMARY | 2025-01-29 00:19 | XMS_ITS | Encounter Summary ---
Author Organization [place] Address [facility] [place] [address] Care Team Providers Care Coil Connector Name Role Phone Subha Levine PA-C Primary Care Provider [phone] Subha Levine PA-C Unavailable [phone] [facility] Pr ovider Gabriella Duffy MD Unavailable [phone] [facility] Unavail able Encounter Details Date Type Department Care Team (Late st Contact Info) Description 05/22/2022 MyC Medical Advice [facility] [address] [place] [phone] Subha Levine PA-C [address] [facility] [address] [place], [place] [id number] Social History Tobacco Use Types Packs/Day Years [...] on file Legal Sex Female 8:56 AM ASSET ADMINISTRATOR Gender Identity Not on file Sexual Orientation Not on file COVID-19 Exposure Response Date Recorded In the last 10 days, have yo u been in contact with someone who was confirmed or suspected to have Coronavirus/COVID-19? No / Unsure 05/22/2022 9:15 AM ASSET ADMINISTRATOR documented as of this encounter Plan of Treatment Not on file documented as of this encounter Visit Diagnoses Not on filedocumented in this encounter Additional Health Concerns Infection Onset Date Last Indicated Resolved Time Rule Out COVID-19 06/03/2022 06/03/2022 06/03/2022 9:15 PM ASSET ADMINISTRATOR Influenza 06/03/2022 06/03/2022 06/10/2022 11:4 1 PM ASSET ADMINISTRATOR Assessment Noted Time PHQ-9 Depression Total Score: 16 022 9:21 AM ASSET ADMINISTRATOR documented as of this encounter Care Teams Coil Connector Relationship Specialty Start Date End Date Subha Levine PA-C PCP - General Physician Electronic Design Engineer 01/31/20 08/15/[address] [address] PCP - General 08/16/23 Subha Levine PA-C Assigned PCP 04/07/21 06/03/24 [place] [address] [place] [address] Assigned PCP 06/04/24 10/01/24 [facility] [address] [place] [address] Assigned PCP 10/02/24 documented as of this encounter
--- OUTSIDE RECORDS SUMMARY | 2025-01-29 00:20 | XMS_ITS | Encounter Summary ---
Author Organization [place] Address [facility] [place] [address] Care Team Providers Care Culture Room Worker Name Role Phone Subha Levine PA-C Primary Care Provider [phone] Subha Levine PA-C Unavailable [phone] [facility] Pr ovider Gabriella Duffy MD Unavailable [phone] [facility] Unavail able Encounter Details Date Type Department Care Team (Late st Contact Info) Description 10/15/[address] [facility] [address] [place] [phone] Subha Levine PA-C [address] [facility] [address] [place], [place] [id number] Social History Tobacco Use Types Packs/Day Years [...] on file Legal Sex Female 8:56 AM ELECTRONIC PUBLISHER Gender Identity Not on file Sexual Orientation [...] Out COVID-19 06/03/2022 06/03/2022 06/03/2022 9:15 PM ELECTRONIC PUBLISHER Influenza 06/03/2022 06/03/2022 06/10/2022 11:4 1 PM ELECTRONIC PUBLISHER Assessment Noted Time PHQ-9 Depression Total Score: 18 022 7:02 AM CDT documented as of this encounter Care Teams Culture Room Worker Relationship Specialty Start Date End Date Subha Levine PA-C PCP - General Physician Public Message Service Supervisor 01/31/20 08/15/[address] [address] PCP - General 08/16/23 Subha Levine PA-C Assigned PCP 04/07/21 06/03/24 [place] [address] [place] [address] Assigned PCP 06/04/24 10/01/24 [facility] [address] [place] [address] Assigned PCP 10/02/24 documented as of this encounter
--- OUTSIDE RECORDS SUMMARY | 2025-01-29 00:20 | XMS_ITS | Clinical Summary ---
Author Organization [facility] Address [address] [place] [address] Care Team Providers Care Slot Tag Inserter Name Role Phone Priscilla Houston PA-C Primary Care Provider Source Comments You are receiving this document as you are listed as the primary care provider,follow-up provider, or the patient has been referred to you for consultation.This is in compliance with the Medicare and[facility] EHR Incentive Program,which states Providers who transition their patient to another setting of careor provider of care or refers their patient to another provider of care shouldprovide summary care record for each transition of care or referral. [facility] Allergies Active Allergy Reactions Criticality Noted Date [...] 2006, 05/19/2006,03/23/2006,2005 IPV (Polio) 03/13/2011, 6,03/23/2006,2005 Influenza [id number] 06/09/2009,05/15/2009 Influenza IIV4 (Quadrivalent ) 0.5mL (53979) 07/28/2022,06/01/2020,06/18/2019 Influenza, Unspecified Formulation 06/28/2008, MCV4 (Menactra) [...] 36.3 C (97.3 F) 08/06/2023 5:00 PM PUBLIC HEALTH EPIDEMIOLOGIST Respiratory Rate 14 08/06/2023 5:30 PM PUBLIC HEALTH EPIDEMIOLOGIST Oxygen Saturation 99% 08/06/2023 5:30 PM PUBLIC HEALTH EPIDEMIOLOGIST Inhaled Oxygen Concentration - - Weight 49.2 [...] Completed 11/18/2022 Medical Devices Implanted Type Area Safe Technician Device Identifier Shelf Expiration Date Model / Serial / Lot Biocomposite Tenodesis Screw With Disposable Second Operator Pack [id number] Implanted:Qty: 1 on 08/06/2023 by Rios Andrade MD at [facility] DEVICE Left: FOOT [employer] 03/12/2024 [id number] / / [id number] Procedures Procedure Name Priority Date/Time Associated Diagnosis [...] Detected Not Detected 11/30/2023 10:58 PM CDT [facility] N. gonorrhoeae STD Not Detected Not Detected 11/30/2023 10:58 PM CDT [facility] Swab STD SPECIMEN FROM VAGINA / Unknown Non-blood Collection / Unknown 11/30/2023 3:07 PM CDT 11/30/2023 4:43 PM CDT Narrative [facility] - 11/30/2023 10:58 PM CDT Test performed by Garnishment Specialist Mediated Amplification (TMA). us Taty Oneal MD LAB_1 Final Result [facility] [address] * Complete Blood Count-W/Diff (11/18/2022 9:41 AM CDT) WBC 5.6 3.5 - 10.5 x10(9)/L 11/18/2022 9:43 AM [facility] RBC 4.93 3.90 - 5.03 x10(12)/L 11/18/2022 9:43 AM [facility] Hemoglobin 13.7 12.0 - 15.5 g/dL 11/18/2022 9:43 AM [facility] HCT 42.0 34.9 - 44.5 % 11/18/2022 9:43 AM [facility] MCV 85.2 80.0 - 100.0 fL 11/18/2022 9:43 AM [facility] MCH 27.8 27.6 - 33.3 pg 11/18/2022 9:43 AM [facility] MCHC 32.6 31.5 - 35.2 g/dL 11/18/2022 9:43 AM [facility] RDW 12.8 11.9 - 15.5 % 11/18/2022 9:43 AM [facility] Platelets 330 150 - 450 x10(9)/L 11/18/2022 9:43 AM [facility] Automated NRBC 0 <=0 /100 WBC 11/18/2022 9:43 AM [facility] Neutrophil Absolute 2.4 1.7 - 7.0 10(9)/L 11/18/2022 9:43 AM [facility] Lymphocyte Absolute 2.5 1.0 - 4.8 10(9)/L 11/18/2022 9:43 AM CDT [facility] Monocyte Absolute 0.5 0.2 - 0.9 10(9)/L 11/18/2022 9:43 AM CDT [facility] Eosinophil Absolute 0.2 0.0 - 0.5 10(9)/L 11/18/2022 9:43 AM CDT [facility] Basophil Absolute 0.0 0.0 - 0.3 10(9)/L 11/18/2022 9:43 AM CDT [facility] Immature Granulocyte % 0.4 0.0 - 0.5 % 11/18/2022 9:43 AM T [facility] Blood Venipuncture / Unknown 11/18/2022 9:41 AM CDT 11/18/2022 9:41 AM CDT us Priscilla Houston PA-C LAB_1 Final R esult [facility] [address] [place] [address], [facility] [phone] from Last 3 Months or Most Recently Relevant to Health Maintenance Insurance [facility] BL[employer]ELINK [facility] BLU[employer]INK HP COMM HP FAMILY D[facility]AL [facility] Advance Directives * Full Code (Latest Code Status on File) Date Activated Date Inactivated Comments 08/06/2023 1:46 PM 08/06/2023 7:53 PM Care Teams Slot Tag Inserter Relationship Specialty Start Date End Date Priscilla Houston PA-C [address] [address] [address] PCP - General Physician Labor Relations Or Personnel Negotiator 11/17/22
--- OUTSIDE RECORDS SUMMARY | 2025-01-29 00:20 | XMS_ITS | Clinical Summary ---
Author Organization [facility] Address [address] [place] [address] Care Team Providers Care Insulation Blower Name Role Phone Savage Franklin MD Primary Care Provider + [phone] Allergies Active Allergy Reactions Criticality Noted Date [...] Description 01/26/2025 3:50 PM CDT Office Visit [facility] [address] [place] [address] Taylor Yeung, UNIT AID Hematuria 01/26/2025 Travel 12/26/2024 11:15 AM CDT Ancillary Procedure [facility] [address] [place] [address] 12/26/2024 9:00 AM CDT Office Visit [facility] [address] [place] [address] Joy Connelly PA Child Care Worker Exam (IUD check/hx of ovarian cysts/pain started around easter /has pain during sex and when she walks/moves around /had bright red blood about a month ago/ hasn't had a period since she got IUD ) 12/26/2024 Travel 11/22/2024 10:40 AM CDT Office [place] [facility] [address] [place] [address] Savage Franklin MD Medication Management 11/22/2024 Travel [...] Description 01/30/2025 9:20 AM CDT Office Visit [facility] [address] [place] [address] [place] [address] [place], [place] [id number] 02/01/2025 8:00 AM CDT Office Visit [facility] [address] [place], [place] [phone] [place] [address] [place], [place] [id number] Health Maintenance Due Date Last Done Comments [...] Last 3 Months Results * URINE CULTURE [14067.2] - routine (01/26/2025 4:08 PM CDT) CULTURE <10,000 CFU/mL multiple organisms 01/28/2025 3:11 PM CDT [facility] Urine URINE SPECIMEN / Unknown Non-Blood / Unknown 01/26/2025 4:08 PM CDT 01/26/2025 4:08 PM CDT us Nuvia Peguero NP MICROBIOLOGY Final Res ult [facility] [address] [place] [address], * (ABNORMAL) UA W/ SEDIMENT EXAM REFLEXED PER CRITERIA [98935.2] (01/26/2025 4:08 PM CDT) COLOR YELLOW YELLOW 01/26/2025 4:20 PM CDT [facility] SPECIFIC GRAVITY 1.010 1.001 - 1.035 01/26/2025 4:20 PM CDT [facility] PH 7.0 5.0 - 8.0 01/26/2025 4:20 PM CDT [facility] PROTEIN NEGATIVE NEGATIVE 01/26/2025 4:20 PM CDT [facility] GLUCOSE NEGATIVE NEGATIVE 01/26/2025 4:20 PM CDT [facility] KETONES NEGATIVE NEGATIVE 01/26/2025 4:20 PM CDT [facility] BILIRUBIN NEGATIVE NEGATIVE 01/26/2025 4:20 PM CDT [facility] OCCULT BLOOD 2+(A) NEGATIVE 01/26/2025 4:20 PM CDT [facility] NITRITE NEGATIVE NEGATIVE 01/26/2025 4:20 PM CDT [facility] LEUKOCYTE ESTERASE 1+(A) NEGATIVE 01/26/2025 4:20 PM CDT [facility] APPEARANCE CLEAR CLEAR 01/26/2025 4:20 PM CDT [facility] WBC UA 0-5 < OR = 5 /HPF 01/26/2025 4:20 PM CDT [facility] RBC UA 3-10(A) < OR = 2 /HPF 01/26/2025 4:20 PM CDT [facility] SQUAMOUS EPITHELIAL CELLS UA 6-10(A) < OR = 5 /HPF 01/26/2025 4:20 PM CDT [facility] BACTERIA UA FEW(A) NONE SEEN /HPF 01/26/2025 4:20 PM CDT [facility] NOTE UA SEE NOTE 01/26/2025 4:20 PM CDT [facility] Comment: This urine was analyzed for the presence of WBC, RBC, bacteria, casts, and other formed elements. Only those elements seen were reported. Urine URINE SPECIMEN / Unknown Non-Blood / Unknown 01/26/2025 4:08 PM CDT 01/26/2025 4:08 PM CDT us Nuvia Peguero UNIT AID URINE Final Res ult [facility] [address] [place] [address], [facility] [address] [place] [address], [place] * US PELVIS COMPLETE TA AND [...] CDT) CHLAMYDIA PROBE Negative 10:01 PM CDT [facility] N GONORRHOEAE PROBE Negative 12/26/2024 10:01 PM CDT [facility] Other VAGINAL SWAB / Unknown Non-Blood / Unknown 12/26/2024 9:11 AM CDT 12/26/2024 1:35 PM CDT us Joy HINTON MICROBIOLOGY Final R esult [facility] [address] [place] [address], from Last 3 Months Insurance [employer] PL[employer] Care Teams Insulation Blower Relationship Specialty [place] [address] [place] [address] PCP - General Family Practice 10/21/24
--- OUTSIDE RECORDS SUMMARY | 2025-01-29 00:20 | XMS_ITS | Encounter Summary ---
Author Organization [facility] Address [address] [place] [address] Care Team Providers Care Jazz Singer Name Role Phone Priscilla Houston PA-C Primary Care Provider Encounter Details Date Type Department Care Team (Late st Contact Info) Description 10/01/2024 Notes/Orders [facility] [address] [place] [address] Rios Andrade MD [address] [place] [address] Social History Tobacco Use Types Packs/Day Years [...] on filedocumented in this encounter Care Teams Jazz Singer Relationship Specialty Start Date End Date Priscilla Houston PA-C [address] [address] PCP - General Physician Brim Stretcher 11/17/22 documented as of this encounter
--- NOTE | 2025-01-29 00:54 | ED.FEMALEGU ---
HPI - Female Genitourinary General Chief complaint: Urogenital Problems, Female Stated complaint: post bladder infection, kidney pain Time Seen by Provider: 01/28/25 23:53 History of Present Illness HPI Narrative: Patient is a 19-year-old young lady who has been on Macrobid for last 3 days for urinary tract infection who is still having significant dysuria. She has had no fevers no chills no night sweats. She feels like she is having some back ache. She has no other significant symptoms. Pain is moderate and she has noticed a slight discoloration of her urine. Related Data Home Medications ?Medication ?Instructions ?Recorded ?Confirmed gabapentin 300 mg capsule 300 mg PO DAILY 01/28/25 01/28/25 Allergies Allergy/AdvReac Type Severity Reaction Status Date / Time hydrocodone Allergy Intermediate Verified 01/28/25 23:47 oseltamivir (From Tamiflu) Allergy Intermediate Vomiting Verified 01/28/25 23:47 Review of Systems Status of ROS: Reports: 10 or more systems reviewed and unremarkable except as noted in History and below Exam Narrative: Exam Narrative: EXAM GENERAL: Patient appears comfortable and well. EYES: No scleral icterus. LYMPH: No supraclavicular or cervical lymphadenopathy. SKIN: Visible skin seen during exam normal or with benign process only. EXT: No dependent lower extremity pedal edema. HEART: Regular rate and rhythm with no murmurs, rubs, or gallops. LUNGS: Clear to auscultation bilaterally with no crackles or wheezes. ABD: Soft, non tender, non distended. PSYCH: Good eye contact, speech is not pressured. Const: Vital Signs, click to edit/add: Vital Signs - 24 hr 01/28/25 23:42 Temperature 97.3 F L Pulse Rate [Left P ulse Oximeter] 81 Respiratory Rate 16 Blood Pressure [Ri ght Upper Arm] 127/84 Pulse Oximetry 99 Oxygen Delivery Me thod Room Air Course Course ED Course: Patient seen examined. UA is reviewed. Send for culture and increase her urinary coverage to ciprofloxacin for the next 5 days. Drink plenty fluids complete rest Tylenol Motrin follow-up with her primary physician as needed. Vital Signs Vital signs: Initial Vital Signs Temperature 97.3 F L 01/28/25 23:42 Temperature Source Temporal Artery Scan 01/28/25 23:42 Pulse Rate 81 01/28/25 23:42 Pulse Rhythm Regular 01/28/25 23:42 Respiratory Rate 16 01/28/25 23:42 Blood Pressure 127/84 01/28/25 23:42 Blood Pressure Mean 98 01/28/25 23:42 Blood Pressure Position Sitting 01/28/25 23:42 Pulse Oximetry 99 01/28/25 23:42 Oxygen Delivery Method Room Air 01/28/25 23:42 Vital Signs Temperature 97.3 F L 01/28/25 23:42 Pulse Rate 81 01/28/25 23:42 Respiratory Rate 16 01/28/25 23:42 Blood Pressure 127/84 01/28/25 23:42 Pulse Oximetry 99 01/28/25 23:42 Oxygen Delivery Method Room Air 01/28/25 23:42 Temperature 97.3 F L 01/28/25 23:42 Pulse Rate 81 01/28/25 23:42 Respiratory Rate 16 01/28/25 23:42 Blood Pressure 127/84 01/28/25 23:42 Pulse Oximetry 99 01/28/25 23:42 Oxygen Delivery Method Room Air 01/28/25 23:42 MDM - Female Genitourinary Lab Data Labs: Lab Results 01/28/25 Range/Units 00:05 Urine Color Yellow (Yellow) Urine Appearance Clear (Clear) Urine pH 6.0 (5.0-8.5) Ur Specific [place] <= 1.005 (1.000-1.030) Urine Protein Negative (Negative) Urine Glucose (UA) Negative (Negative) Urine Ketones Negative (Negative) Urine Blood Negative (Negative) Urine Nitrite Negative (Negative) Urine Bilirubin Negative (Negative) Urine Urobilinogen 0.2 (0.2-1.0) Ur Leukocyte Esterase Trace A (Negative) Urine RBC 0-2 (0-2) Urine WBC 0-2 (0-5) Ur Squamous Epith Cells Many A (None-Few) Urine Bacteria Few A (None) Discharge Plan Discharge Clinical Impression: Urinary tract infection Patient Disposition: Home, Self-Care Condition: Stable Instructions: Urinary Tract Infection in Women (ED) Additional Instructions: Cipro as directed Tylenol Motrin Rest Fluids Activity Level: No Restrictions Discharge Diet: Regular Prescriptions: No Action gabapentin 300 mg capsule 300 mg PO DAILY Follow Up/Referrals: Provider,Not a Local [Primary Care Provider, Family Practice] Stand Alone Forms: MyHealth Info Instructions
== END 2025-01-29 01:05 | disposition home or self-care (01) ==
PROVIDERS: Emergency Provider Internal Medicine
DX: N39.0 Urinary tract infection, site not specified (principal)
CPT/HCPCS: 81001; 81003; 87086; 99283